=== PATIENT | female | born 1980 | race Caucasian/White ===

== ENCOUNTER 2023-06-08 13:01 | Emergency (ER) | payer OTHER, SELFPAY ==
[2023-06-08 13:16] VITALS: BP 138/92; PULSE 116; RESP 18; TEMP 36.7; O2SAT 100
--- NOTE | 2023-06-08 13:18 | ED.URI ---
HPI - URI/Sore Throat General Chief Complaint: Upper Respiratory Infection Stated Complaint: cold/flu like symptoms Time Seen by Provider: 06/08/23 13:09 Source: patient Mode of arrival: ambulatory Limitations: no limitations History of Present Illness HPI Narrative: Tiffanie is a 42-year-old female patient presenting to the clinic today with complaints of nasal congestion, cough, fever that started Sunday evening. She reports no shortness of breath or chest pain. Tested herself yesterday for COVID and was negative. MD elicited complaint: fever, cough and nasal congestion Related Data Home Medications Medication Instructions Recorded Confirmed No Home Medications 06/08/23 06/08/23 Allergies Allergy/AdvReac Type Severity Reaction Status Date / Time Penicillins Allergy Rash Verified 06/08/23 13:26 Review of Systems Review of Systems: Pertinent positives per HPI. Patient denies any rash, headache, visual changes, dizziness, shortness of breath, chest pain, palpitations, nausea, vomiting, diarrhea, constipation, abdominal pain, or any urinary issues. PMFSH Comments At the time of my signature, I reviewed and agree with the nursing past medical, surgical, social, and family history. There is no relevant family history pertinent to the patient complaint. Exam Narrative: General: Well-developed, well nourished, in no apparent distress Head: Normocephalic, atraumatic Eyes: Pupils equally round and reactive to light bilaterally, EOM intact, sclera and conjunctive clear, no discharge, lids normal Ears: TMs intact and clear, ear canals clear, no drainage, grossly hearing normal. Nose: Nares patent, no discharge, no inflammation, no sinus tenderness. Mouth: Oral pharynx without lesions or masses, good dentition, MMM. Neck: Supple, trachea midline, no enlargement of anterior or posterior cervical nodes, no thyroid masses or goiter palpable. Cardio: Regular rate and rhythm, s1 and s2 normal, no murmur appreciated. Resp: Clear to auscultation bilaterally, no rhonchi, rales, wheezing or rubs Course Course Emergency Course: Portions of this record may have been created with voice recognition software. Level of Care: Express Care Visit Vital Signs Vital signs: Vital Signs Temperature 36.7 C 06/08/23 13:16 Pulse Rate 116 H 06/08/23 13:16 Respiratory Rate 18 06/08/23 13:16 Blood Pressure 138/92 H 06/08/23 13:16 Pulse Oximetry 100 06/08/23 13:16 Oxygen Delivery Room Air 06/08/23 13:16 Temperature 36.7 C 06/08/23 13:16 Pulse Rate 116 H 06/08/23 13:16 Respiratory Rate 18 06/08/23 13:16 Blood Pressure 138/92 H 06/08/23 13:16 Pulse Oximetry 100 06/08/23 13:16 Oxygen Delivery Room Air 06/08/23 13:16 Vital signs reviewed MDM - URI/Sore Throat MDM Narrative Medical decision making narrative: At the time of visit patient is resting comfortably on the exam table. Patient appears to be nontoxic. COVID and influenza testing was performed. Influenza testing was negative. COVID test was positive. Work note was given. Supportive measures were discussed with the patient and they voiced understanding discharge instructions and agrees to treatment plan. Return precautions reviewed Differential Diagnosis Differential diagnosis: Likely upper respiratory infection, otitis media, sinusitis, viral infection, bronchitis, influenza, pharyngitis and other (COVID) Discharge Plan Discharge Clinical Impression: COVID-19 Patient Disposition: Home, Self-Care Condition: Stable Instructions: Antibiotic Form, COVID-19 (Coronavirus Disease 2019) (ED), How to Recover from COVID-19 at Home (ED) Additional Instructions: COVID test was positive in the clinic today. May take DayQuil/NyQuil for cold/flu symptoms Increase fluids and stay well hydrated Tylenol/motrin for pain/fever Flonase and OTC antihistamines as directed Vicks vapor rub to open sinuses Sinus ri
== END 2023-06-08 13:42 | disposition home or self-care (01) ==
PROVIDERS: Emergency Provider Nurse Practitioner Family; PCP Internal Medicine
DX: U07.1 COVID-19 (principal)
CPT/HCPCS: 87426; 87804; 99213; C9803; G0463

== ENCOUNTER 2024-10-01 10:48 | Outpatient (CLI) | payer OTHER, SELFPAY ==
--- NOTE | ~2024-10-01 | US_ITS ---
Pelvic ultrasound. Clinical History: Menorrhagia, irregular menses Technique: Realtime transabdominal and transvaginal scanning of the pelvis was performed. Color flow Doppler and Doppler spectral analysis were performed. Findings: The uterus is retroverted.. The endometrial stripe has a thickness of up to 28 mm. No foca l mass is identified. The right ovary measures 2.8 x 2.1 x 2.0 cm. No significant right ovarian or adnexal mass is seen. The left ovary measures 4.0 x 6.3 x 3.4 cm. Left renal cyst measures 4.8 x 2.6 cm with minimal low-le lucius internal echoes, likely evolving hemorrhagic cyst.. There is small amount of free fluid in the cul de sac. Impression: Prominent endometrial stripe may be due to stage in menstrual cycle as well as possible oblique posit ion of the uterus. 4.8 x 2.6 cm probable evolving hemorrhagic left ovarian cyst. Small amount of free fluid in the pelvis. Reviewed, dictated and finalized at [facility]. Impression: Prominent endometrial stripe may be due to stage in menstrual cycle as well as possible oblique position of the uterus. 4.8 x 2.6 cm probable evolving hemorrhagic left ovarian cyst. Small amount of free fluid in the pelvis.
== END 2024-10-01 10:49 | disposition home or self-care (01) ==
LOC: MICIMG 10:50
PROVIDERS: PCP Internal Medicine; Visit Provider Nurse Practitioner
DX: N92.1 Excessive and frequent menstruation with irregular cycle (principal)
CPT/HCPCS: 76830; 76856